=== PATIENT | female | born 1980 | race Caucasian/White ===

== ENCOUNTER → 2016-11-26 | Outpatient (CLI) | payer OTHER ==
--- NOTE | 2016-11-26 12:16 | US ---
Thyroid Sonogram Clinical Indication: Follow-up thyroid nodules. Technique: Longitudinal and transverse images of the thyroid gland were obtained. Comparison the prior ultrasound study from 10/10/2015. Findings: Right lobe thyroid: Multiple nodules once again seen in the right. Midportion right lobe thyroid, hypoechoic smooth oval solid nodule with internal color flow enhanceme nt, 6 x 3 x 7 mm (previously 6 x 3 x 5 mm). Lower pole right lobe thyroid, slightly hypoechoic solid nodule with internal color flow enhancement and smooth margins, 5 x 4 x 6 mm (previously 5 x 4 x 5 mm) Isoechoic possible nodule only seen in longitudinal projection measuring about 13 x 7 mm. This is not confirmed in the transverse view. In retrospect probably present on prior cine loop imaging from Jul. Slightly hypoechoic small nodules lower pole right lobe thyroid anteriorly measuring less than 5 mm i n retrospect are present on prior remote study from July,. No significant nodules are seen on the right. The right lobe of the thyroid in total measures 4.4 x 1 .3 x 0.8 cm. Left lobe thyroid: Multiple nodules are once again seen on the left. Upper pole left lobe, smooth oval slightly hypoechoic solid nodule, 6 x 7 x 4 mm (previously 7 x 6 x 6 mm) Heterogeneous hypoechoic solid nodule midportion left lobe thyroid with smooth margins, internal echo genic foci once again noted with some internal color flow enhancement, 13 x 11 x 14 mm (previously 15 x 11 x 12 mm) Lower pole left lobe thyroid, isoechoic solid nodule with some echogenic foci and small areas of cyst ic change, internal color flow enhancement noted, 13 x 10 x 17 mm (previously 13 x 12 x 16 mm) The left lobe of the thyroid in total measures 5.6 x 1.8 x 1.1 cm. There is no significant lymphadenopathy within the neck along the cervical chain bilaterally. Impression: 1. Relatively stable bilateral thyroid nodules as detailed above. 2. By imaging characteristics, the nodules within the mid and lower portion of the left lobe of the t hyroid are heterogeneous and mildly suspicious. If fine-needle aspiration biopsy is not performed the n consider continued ultrasound follow-up in 1 year.
== END ==
LOC: CIMAGING 09:16
PROVIDERS: ATTEND Internal Medicine Endocrinology, Diabetes & Metabolism
DX: E04.2 Nontoxic multinodular goiter (principal)
CPT/HCPCS: 76536-PO

== ENCOUNTER 2016-11-28 08:44 | Emergency (ER) | payer OTHER ==
[2016-11-28 09:15] VITALS: BP 105/73; PULSE 71; RESP 14; TEMP 98.1; O2SAT 99
--- NOTE | 2016-11-28 09:51 | UCPHY ---
H & P Time Seen by Provider: 11/28/16 09:05 Patient Type: Established HPI/ROS: This patient reports injury to her left 2nd finger when she was pulling a blanket this morning she felt a sudden pinching pain to the palmar aspect of the finger with moderate pain since that time. The injury occurred a.m.. She reports mild ecchymosis and swelling to the middle phalanx region since that time. She reports the discomfort is mild-2/10. She has not taken any medication except for ibuprofen 400 mg shortly prior to arrival. Symptoms worsened slightly with movement of the finger no other exacerbating factors. She reports difficulty completely flexing the finger since the injury occurred. ROS: No numbness or tingling. No antecedent trauma. No other complaints and 5 point ROS is otherwise negative. Past Medical/Surgical History: The patient had a deep laceration to the same finger palmar aspect as a teenager repaired in urgent care in [place]. She is uncertain if there was tendon injury. Smoking Status: Never smoked Physical Exam: Physical Exam Vital signs are normal. General: No acute distress Lungs: No respiratory distress. Cardiac: Brisk capillary refill is intact throughout. Pulses are 2+ and symmetric in the affected extremity. Skin: No rash or pallor. Extremities: Atraumatic & normal except for left 2nd finger Left 2nd finger: Patient has ecchymosis to the palmar aspect of the middle phalanx with decreased range of motion in flexion. This seems to be weakness rather than pain. There is no gross deformity or malrotation of the finger. No pallor. No erythema Neuro: Alert and oriented x3 with no sensorimotor deficits. Initial differential diagnosis: Tendon rupture versus partial tendon tear, fracture, sprain Constitutional: Initial Vital Signs Temperature (C) 36.7 C 11/28/16 09:10 Heart Rate 71 11/28/16 09:10 Respiratory Rate 14 11/28/16 09:10 Blood Pressure 105/73 11/28/16 09:10 O2 Sat (%) 99 11/28/16 09:10 O2 Delivery Mode Room Air Allergies/Adverse Reactions: gabapentin Allergy (Verified 11/28/16 09:16) latex Allergy (Verified 11/28/16 09:16) metoclopramide HCl [From Reglan] Allergy (Verified 11/28/16 09:16) Home Medications: Medication Instructions Recorded Methimazole 05/31/16 Norethindrone-Mestranol [Necon 05/31/16 1-50-28 Tablet] Hydrocodone/APAP 5/325 [Endeavor 1 - 2 tab PO Q4PRN PRN #12 tab 11/28/16 5/325 (*)] Medical Decision Making - Diagnostics Imaging: Finger x-ray: Negative for fracture or other abnormalities by my interpretation except for minimal palmar aspect soft tissue swelling at the middle phalanx. ED Course/Re-evaluation: Discussion: Given the patient's prior deep lacerations suspect that she had a partial tendon injury with tendon rupture today due to flexion versus resistance. I counseled her regarding this. She is placed in Alumafoam volar splint. To follow up with Dr. Mckeon-hand specialist for further evaluation. Departure - Departure Disposition: Home, Routine, Self-Care Clinical Impression: Tendon injury Condition: Good Instructions: Finger Sprain (ED) Additional Instructions: Diagnosis: Tendon injury to left 2nd finger Plan: Cristiano tape the fingers for comfort and support [id number] mg per 6 hours as needed for pain. Tylenol or Vicodin in addition if needed. No driving, alcohol or come Vicodin. Call Dr. Mckeon-hand specialist arrange follow-up appointment for further evaluation if her symptoms are not improving over the next 5 days. Referrals: Maggie Sullivan MD [Primary Care Provider] - As per Instructions Lakshmi Mckeon MD [Medical Doctor] - As per Instructions Prescriptions: Hydrocodone/APAP 5/325 [Endeavor 5/325 (*)] 1 - 2 tab PO Q4PRN PRN #12 tab PRN Reason: Pain - PQRS PQRS Measurement: NA
== END 2016-11-28 10:10 | disposition home or self-care (01) ==
LOC: CED 08:44
DX: S69.92XA Unspecified injury of left wrist, hand and finger(s), initial encounter (principal); X50.9XXA Other and unspecified overexertion or strenuous movements or postures, initial encounter
CPT/HCPCS: 73140-PO; 99214-PO; G0463-PO

== ENCOUNTER 2018-02-06 09:17 | Emergency (ER) | payer OTHER ==
--- NOTE | 2018-02-06 09:34 | EDPHY ---
H & P Time Seen by Provider: 02/06/18 09:32 HPI/ROS: Chief complaint. Abdominal pain, chills, arm numb HPI. 37-year-old female presents with epigastric pain that has been off and on for approximately 1 month. She describes as burning in the epigastrium. Occasionally radiating behind her sternum. Her symptoms are worse with eating and worse at night. Occasional nausea without vomiting. Has used intermittent Zantac with out relief. Last night she felt like his she was cold. She felt that her left arm was somewhat numb. There was no weakness. Her arm is better today with a small residual posterior left humeral numbness sensation. She has no chest pain and no shortness of breath. ROS Constitutional. no fever/chills, no weakness Eyes. no problems with vision ENT. no sore throat, no nasal drainage Cardiovascular. no chest pain Respiratory. no shortness of breath, no cough Abdominal. Upper abdominal pain with occasional nausea . no problems urinating MS. no calf pain/swelling, no neck/back pain, no joint pain Skin. no rash Lymph. no swollen glands Neuro. no headache, no dizziness, no difficulty walking or with speech Past Medical/Surgical History: Hyper thyroid, GERD Social History: , nonsmoker, no alcohol Smoking Status: Never smoked Physical Exam: General Appearance: Alert well-developed female mild distress vital signs are stable Eyes: Pupils equal and round no pallor or injection. ENT, Mouth: Mucous membranes are moist. Respiratory: There are no retractions, lungs are clear to auscultation. Cardiovascular: Regular rate and rhythm. Gastrointestinal: Mild tenderness in the epigastrium. Slight tenderness in the right upper quadrant. No masses. Normal bowel sounds Neurological: Awake and alert, subjective slight posterior altered sensation left posterior upper arm. Strength and movement are totally normal.. Skin: Warm and dry, no rashes. Musculoskeletal: Neck is supple nontender. Extremities symmetrical, full range of motion. Psychiatric: Patient is oriented X 3, there is no agitation. Constitutional: Initial Vital Signs Temperature (C) 36.5 C 02/06/18 09:21 Heart Rate 78 02/06/18 09:21 Respiratory Rate 16 02/06/18 09:21 Blood Pressure 130/89 H 02/06/18 09:21 O2 Sat (%) 98 02/06/18 09:21 O2 Delivery Mode Room Air Allergies/Adverse Reactions: adhesive tape Allergy (Verified 02/06/18 09:29) gabapentin Allergy (Verified 02/06/18 09:29) latex Allergy (Verified 02/06/18 09:29) metoclopramide HCl [From Reglan] Allergy (Verified 02/06/18 09:29) Sulfa (Sulfonamide Antibiotics) Allergy (Verified 02/06/18 09:29) Home Medications: Medication Instructions Recorded Methimazole 05/31/16 Norethindrone-Mestranol [Necon 05/31/16 1-50-28 Tablet] Esomeprazole Mag Trihydrate 40 mg PO DAILY #20 cap. 02/06/18 [Nexium] Medical Decision Making - Diagnostics Imaging Results: Imaging Impressions Abdomen Ultrasound 02/06/18 09:48 Impression: Normal right upper quadrant ultrasound. Results called and discussed with Dr. Julio Ding on February 06, 2018 at 1022 hours. Ultrasound gallbladder reviewed by me and discussed with Dr. Esparza is normal. No gallstones or evidence of acute or chronic inflammation. Procedures: IV normal saline GI cocktail ED Course/Re-evaluation: Re-evaluation 10:10 a.m.. Patient is stable. Ultrasound is completed and results are pending On re-evaluation at 10:30 a.m.. Patient got improvement from the GI cocktail. Patient and I discussed imaging and lab results. We discussed treatment plan including criteria for return importance of follow-up and further evaluation. She expresses understanding and agreement. She has an upcoming appointment with Gastroenterology. Differential Diagnosis: I believe this is likely gastritis and GERD. I considered peptic ulcer disease. I considered cholecystitis and gallstones. I have also considered pancreatitis. - Data Points Laboratory Results: Laboratory Results 02/06/18 09:53 02/06/18 09:53 02/06/18 02/06/18 09:53 09:53 WBC 5.41 10^3/uL 10^3/uL (3.80-9.50) RBC 4.30 10^6/uL 10^6/uL (4.18-5.33) Hgb 13.4 g/dL g/dL (12.6-16.3) Hct 39.4 % % (38.0-47.0) MCV 91.6 fL fL (81.5-99.8) MCH 31.2 pg pg (27.9-34.1) MCHC 34.0 g/dL g/dL (32.4-36.7) RDW 12.5 % % (11.5-15.2) Plt Count 266 10^3/uL 10^3/uL (150-400) MPV 9.1 fL fL (8.7-11.7) Neut % (Auto) 54.1 % % (39.3-74.2) Lymph % (Auto) 36.6 % % (15.0-45.0) Emery % (Auto) 6.7 % % (4.5-13.0) Eos % (Auto) 0.9 % % (0.6-7.6) Baso % (Auto) 1.3 % % (0.3-1.7) Nucleat RBC Rel Count 0.0 % % (0.0-0.2) Absolute Neuts (auto) 2.93 10^3/uL 10^3/uL (1.70-6.50) Absolute Lymphs (auto) 1.98 10^3/uL 10^3/uL (1.00-3.00) Absolute Monos (auto) 0.36 10^3/uL 10^3/uL (0.30-0.80) Absolute Eos (auto) 0.05 10^3/uL 10^3/uL (0.03-0.40) Absolute Basos (auto) 0.07 10^3/uL 10^3/uL (0.02-0.10) Absolute Nucleated RBC 0.00 10^3/uL 10^3/uL (0-0.01) Immature Gran % 0.4 % % (0.0-1.1) Immature Gran # 0.02 10^3/uL 10^3/uL (0.00-0.10) Sodium 140 mEq/L mEq/L (135-145) Potassium 3.8 mEq/L mEq/L (3.5-5.2) Chloride 103 mEq/L mEq/L (97-110) Carbon Dioxide 26 mEq/l mEq/l (22-31) Anion Gap 11 mEq/L mEq/L (8-16) BUN 11 mg/dL mg/dL (7-23) Creatinine 0.8 mg/dL mg/dL (0.6-1.0) Estimated GFR > 60 Glucose 97 mg/dL mg/dL (70-100) Calcium 9.2 mg/dL mg/dL (8.5-10.4) Total Bilirubin 0.6 mg/dL mg/dL (0.1-1.4) Conjugated Bilirubin 0.2 mg/dL mg/dL (0.0-0.5) Unconjugated Bilirubin 0.4 mg/dL mg/dL (0.0-1.1) AST 15 IU/L IU/L (14-46) ALT 17 IU/L IU/L (9-52) Alkaline Phosphatase 42 IU/L IU/L (38-126) Total Protein 7.3 g/dL g/dL (6.3-8.2) Albumin 3.9 g/dL g/dL (3.5-5.0) Lipase 120 IU/L IU/L (23-300) Medications Given: Discontinued Medications Al Hydroxide/Mg Hydroxide (Maalox Susp) 30 ml PO ONCE ONE Stop: 02/06/18 09:48 Last Admin: 02/06/18 09:51 Dose: 30 ml Hyoscyamine Sulfate (Levsin, Hyomax-Sl) 0.25 mg PO ONCE ONE Stop: 02/06/18 09:48 Last Admin: 02/06/18 09:52 Dose: 0.25 mg Lidocaine (Lidocaine 2% Viscous) 15 ml PO ONCE ONE Stop: 02/06/18 09:48 Last Admin: 02/06/18 09:51 Dose: 15 ml Departure - Departure Disposition: Home, Routine, Self-Care Clinical Impression: Abdominal pain Qualifiers: Abdominal location: epigastric Qualified Code(s): R10.13 - Epigastric pain Condition: Good Instructions: Gastritis (ED), Diet for Stomach Ulcers and Gastritis (ED) Additional Instructions: Nexium daily to help with stomach. May supplement with liquid Maalox or Mylanta especially at bedtime. MiraLax or soni Colace to help with constipation. Return for worsening symptoms. Keep your follow-up appointment with Gastroenterology Prescriptions: Esomeprazole Mag Trihydrate [Nexium] 40 mg PO DAILY #20 cap.
[2018-02-06] MEDS ORDERED: MAG HYDROX/AL HYDROX/SIMETH 30 ML UDCUP PO ONE (09:47)
[2018-02-06] MEDS ORDERED: HYOSCYAMINE SULFATE 0.125 MG TAB PO ONE (09:47)
[2018-02-06] MEDS ORDERED: LIDOCAINE 2% VISCOUS 15 ML UDCUP PO ONE (09:47)
[2018-02-06 09:56] LABS: PLATELET COUNT 266 10^3/uL (150-400)
[2018-02-06 10:50] VITALS: BP 122/77
== END 2018-02-06 10:50 | disposition home or self-care (01) ==
LOC: CED 09:17
DX: R10.13 Epigastric pain (principal); Z91.040 Latex allergy status
CPT/HCPCS: 76705-PO; 80048-PO; 80076-PO; 83690-PO; 85025-PO

== ENCOUNTER → 2018-06-24 | Outpatient (CLI) | payer OTHER ==
[~2018-06-24] MED LIST: SINCALIDE 5 MCG VIAL IV ONE
== END ==
LOC: FIMAGING 10:28
PROVIDERS: ATTEND Physician Assistant
DX: R10.13 Epigastric pain (principal)
CPT/HCPCS: 78227; A9537; J2805

== ENCOUNTER → 2018-07-10 | Outpatient (CLI) | payer OTHER ==
[~2018-07-10] MED LIST changes: +IOPAMIDOL (ISOVUE-300) 100 ML BTL ONE; -SINCALIDE 5 MCG VIAL IV ONE
== END ==
LOC: CIMAGING 10:16
PROVIDERS: ATTEND Physician Assistant
DX: R10.13 Epigastric pain (principal); R11.0 Nausea
CPT/HCPCS: 74177-PO; Q9967

== ENCOUNTER → 2018-09-12 | Outpatient (CLI) | payer OTHER | LOC: CIMAGING 12:41 | PROVIDERS: ATTEND Internal Medicine Endocrinology, Diabetes & Metabolism | DX: E04.1 Nontoxic single thyroid nodule (principal) | CPT/HCPCS: 76536-PO ==